=== PATIENT | female | born 1965 | race Caucasian/White ===

== ENCOUNTER 2025-01-07 10:54 | Inpatient (IN) ==
[2025-01-07] MEDS: fentaNYL 100 MCG/2 ML VIAL IV PRN (11:23)
[2025-01-07] MEDS: cefTRIAXone 1 GM VIAL IV ONE ×2 (11:25→19:45)
[2025-01-07] MEDS: 0.9 % SODIUM CHLORIDE 1,000 ML IV ONE ×2 (11:25→17:58)
[2025-01-07] MEDS: LACTATED RINGERS 1,000 ML IV ONE (11:43)
[2025-01-07 12:12] LABS: Basophils # (Auto) 0.03 K/mcL (0.00-0.30); Basophils % (Auto) 0.2 % (0.0-2.0); Eosinophils # (Auto) 0.01 K/mcL (0.00-0.70); Eosinophils % (Auto) 0.1 % (0.0-7.0); Hematocrit 41.4 % (34.1-44.9); Hemoglobin 14.4 g/dL (11.2-15.7); Lymphocytes # (Auto) 0.85 K/mcL (1.50-4.80); Lymphocytes % (Auto) 5.0 % (15.5-49.0); Mean Corpuscular HGB Conc 34.8 g/dL (31.0-36.0); Monocytes # (Auto) 0.30 K/mcL (0.10-0.90); Monocytes % (Auto) 1.8 % (1.0-12.0); Neutrophils % (Auto) 92.5 % (38.0-78.0); Platelet Count 246 K/mcL (140-440); RBC 4.61 M/mcL (3.59-5.38); WBC 17.0 K/mcL (4.5-11.0)
[2025-01-07 12:25] LABS: ALT/SGPT 50 U/L (<40); AST/SGOT 46 U/L (<32); Albumin 3.5 gm/dL (3.2-5.2); Albumin/Globulin Ratio 1.2 (1.0-2.3); Alkaline Phosphatase 78 U/L (39-117); Anion Gap 13.0 (8.0-16.0); Bilirubin,Total 2.1 mg/dL (0.1-1.0); Blood Urea Nitrogen 15 mg/dL (6-20); Calcium 9.0 mg/dL (8.6-10.4); Carbon Dioxide 23 mmol/L (22-30); Chloride 98 mmol/L (96-108); Globulin 2.9 gm/dL (2.2-3.7); Glucose 147 mg/dL (70-105); Potassium 3.3 mmol/L (3.3-5.1); Sodium 134 mmol/L (133-145)
[2025-01-07] MEDS: CIPROFLOXACIN 400 MG/200 ML BAG IV ONE (15:00)
[2025-01-07] MEDS ORDERED: SENNOSIDES 1 TABLET PO PRN (17:52)
[2025-01-07] MEDS ORDERED: LACTULOSE 20 GM/30 ML ORAL.SOL PO PRN (17:52)
[2025-01-07] MEDS ORDERED: NICOTINE POLACRILEX 2 MG GUM CHEW/PARK PRN (17:52)
[2025-01-07] MEDS ORDERED: HYDROmorphone 0.5 MG/0.5 ML SYRINGE IV PRN (17:52)
[2025-01-07] MEDS: NICOTINE 14 MG PATCH TOPICAL SCH (19:06)
[2025-01-07] MEDS: 0.9 % SODIUM CHLORIDE 1,000 ML IV SCH (19:06)
[2025-01-07] MEDS: ACETAMINOPHEN 500 MG TABLET PO PRN (19:06)
[2025-01-07] MEDS: CLINDAMYCIN IN 0.9 % SOD CHLOR 900 MG/50 ML BAG IV SCH (19:46)
[2025-01-07] MEDS: cefTRIAXone 1 GM VIAL ONE (19:46)
[2025-01-07] MEDS: DOCUSATE SODIUM 100 MG CAPSULE PO SCH (20:06)
[2025-01-07] MEDS: 0.9 % SODIUM CHLORIDE 10 ML SYRINGE IV SCH (20:06)
[2025-01-07] MEDS: KETOROLAC 15 MG/ML VIAL IV PRN (21:56)
[2025-01-08] MEDS: ONDANSETRON 4 MG/2 ML VIAL IV PRN (04:19)
[2025-01-08 06:11] LABS: Basophils # (Auto) 0.01 K/mcL (0.00-0.30); Basophils % (Auto) 0.1 % (0.0-2.0); Eosinophils # (Auto) 0.27 K/mcL (0.00-0.70); Eosinophils % (Auto) 3.4 % (0.0-7.0); Hematocrit 34.3 % (34.1-44.9); Hemoglobin 11.7 g/dL (11.2-15.7); Lymphocytes # (Auto) 0.61 K/mcL (1.50-4.80); Lymphocytes % (Auto) 7.7 % (15.5-49.0); Mean Corpuscular HGB Conc 34.1 g/dL (31.0-36.0); Monocytes # (Auto) 0.31 K/mcL (0.10-0.90); Monocytes % (Auto) 3.9 % (1.0-12.0); Neutrophils % (Auto) 84.6 % (38.0-78.0); Platelet Count 168 K/mcL (140-440); RBC 3.80 M/mcL (3.59-5.38); WBC 7.9 K/mcL (4.5-11.0)
[2025-01-08 06:24] LABS: ALT/SGPT 44 U/L (<40); AST/SGOT 42 U/L (<32); Albumin 2.9 gm/dL (3.2-5.2); Albumin/Globulin Ratio 1.2 (1.0-2.3); Alkaline Phosphatase 74 U/L (39-117); Anion Gap 8.0 (8.0-16.0); Bilirubin,Direct 0.5 mg/dL (<0.3); Bilirubin,Total 1.0 mg/dL (0.1-1.0); Blood Urea Nitrogen 14 mg/dL (6-20); Calcium 8.8 mg/dL (8.6-10.4); Carbon Dioxide 24 mmol/L (22-30); Chloride 105 mmol/L (96-108); Globulin 2.5 gm/dL (2.2-3.7); Glucose 106 mg/dL (70-105); Phosphorous 2.4 mg/dL (2.5-4.5); Potassium 3.4 mmol/L (3.3-5.1); Sodium 137 mmol/L (133-145); Triglycerides 152 mg/dL (<150); Uric Acid 4.2 mg/dL (2.5-8.0)
[2025-01-08] MEDS: ENOXAPARIN 40 MG/0.4 ML SYRINGE SQ SCH (08:30)
[2025-01-08] MEDS: cefTRIAXone 2 GM in DEXTROSE 5% IN WATER 50 ML IV SCH (09:18)
[2025-01-08] MEDS ORDERED: CALCIUM CARBONATE 500 MG TAB.CHEW CHEWED PRN (16:15)
[2025-01-08] MEDS: OMEPRAZOLE 20 MG CAPSULE PO SCH (18:45)
[2025-01-08] MEDS: FLUCONAZOLE 100 MG TABLET PO ONE ×2 (18:53→19:01)
[2025-01-09 05:47] LABS: Basophils # (Auto) 0.01 K/mcL (0.00-0.30); Basophils % (Auto) 0.2 % (0.0-2.0); Eosinophils # (Auto) 0.22 K/mcL (0.00-0.70); Eosinophils % (Auto) 3.4 % (0.0-7.0); Hematocrit 33.2 % (34.1-44.9); Hemoglobin 11.5 g/dL (11.2-15.7); Lymphocytes # (Auto) 0.93 K/mcL (1.50-4.80); Lymphocytes % (Auto) 14.5 % (15.5-49.0); Mean Corpuscular HGB Conc 34.6 g/dL (31.0-36.0); Monocytes # (Auto) 0.39 K/mcL (0.10-0.90); Monocytes % (Auto) 6.1 % (1.0-12.0); Neutrophils % (Auto) 75.6 % (38.0-78.0); Platelet Count 215 K/mcL (140-440); RBC 3.70 M/mcL (3.59-5.38); WBC 6.4 K/mcL (4.5-11.0)
[2025-01-09 06:02] LABS: ALT/SGPT 44 U/L (<40); AST/SGOT 34 U/L (<32); Albumin 2.8 gm/dL (3.2-5.2); Albumin/Globulin Ratio 1.1 (1.0-2.3); Alkaline Phosphatase 78 U/L (39-117); Anion Gap 10.0 (8.0-16.0); Bilirubin,Direct 0.3 mg/dL (<0.3); Bilirubin,Total 0.6 mg/dL (0.1-1.0); Blood Urea Nitrogen 10 mg/dL (6-20); Calcium 8.5 mg/dL (8.6-10.4); Carbon Dioxide 23 mmol/L (22-30); Chloride 108 mmol/L (96-108); Globulin 2.5 gm/dL (2.2-3.7); Glucose 96 mg/dL (70-105); Phosphorous 2.6 mg/dL (2.5-4.5); Potassium 3.4 mmol/L (3.3-5.1); Sodium 141 mmol/L (133-145); Triglycerides 176 mg/dL (<150); Uric Acid 3.9 mg/dL (2.5-8.0)
[2025-01-09] MEDS ORDERED: IOPAMIDOL 100 ML BOTTLE IV ONE (08:07)
[2025-01-09 16:29] VITALS: TEMP 99.5; O2SAT 97
[2025-01-09] MEDS: IBUPROFEN 200 MG TABLET PO PRN (16:49)
== END 2025-01-09 17:46 | disposition left against medical advice (07) ==
LOC: ED 10:54 → ICU 17:39 → MEDSUR 01-09 11:36
PROVIDERS: ADMIT Internal Medicine; ATTEND Internal Medicine